=== PATIENT | female | born 1990 | race Caucasian/White ===

== ENCOUNTER 2018-06-21 07:45 | Outpatient (CLI) | payer BC ==
--- NOTE | 2018-06-21 11:08 | NM ---
NUCLEAR MEDICINE HIDA SCAN: HISTORY: Unspecified abdominal pain. COMPARISON: None. TECHNIQUE: The patient was administered 5.5 mCi of Technetium 99m mebrofenin intravenously. The patient was adm inistered a total of 8 ounces of Ensure orally to determine the ejection fraction. FINDINGS: There is appropriate uptake of the radiotracer by the hepatic parenchyma. There is localization of r adiotracer into the intrahepatic biliary system. There is localization of radiotracer into the gallb ladder as early as 17 minutes. There is passage of radiotracer from the common bile duct into small bowel loops after administration of Ensure. Gallbladder ejection fraction is 62%. IMPRESSION: 1. No significant of acute cholecystitis. 2. Ejection fraction is 62%. POS: [facility]
== END 2018-06-21 07:46 | disposition home or self-care (01) ==
LOC: NM 07:45
PROVIDERS: ATTEND Internal Medicine Gastroenterology
DX: R10.9 Unspecified abdominal pain (principal)
CPT/HCPCS: 78227; A9537